=== PATIENT | female | born 1950 | race Caucasian/White ===

== ENCOUNTER 2024-09-27 12:59 | Inpatient (IN) ==
[~2024-09-27 12:59] MED LIST: DEXAMETHASONE 10 MG/ML VIAL ONE; KETAMINE 50 MG/ML Syringe IV ONE; LIDOCAINE 2% PF 5 ML VIAL ONE; MAGNESIUM SULFATE 2 GM/50 ML BAG IV ONE; ONDANSETRON 4 MG/2 ML VIAL ONE; PROPOFOL 200 MG/20 ML VIAL IV ONE; fentaNYL 100 MCG/2 ML VIAL ONE
[2024-09-27 13:29] LABS: POC Calcium, Ionized 1.17 (1.16-1.32); POC Creatinine 0.6 (0.6-1.2); POC Potassium 2.9 (3.3-5.1)
[2024-09-27 13:48] LABS: Basophils # (Auto) 0.03 K/mcL (0.00-0.30); Basophils % (Auto) 0.5 % (0.0-2.0); Eosinophils # (Auto) 0.01 K/mcL (0.00-0.70); Eosinophils % (Auto) 0.2 % (0.0-7.0); Hematocrit 39.5 % (34.1-44.9); Hemoglobin 13.6 g/dL (11.2-15.7); Lymphocytes # (Auto) 1.38 K/mcL (1.50-4.80); Lymphocytes % (Auto) 22.6 % (15.5-49.0); Mean Cell Volume 89.6 fL (80.0-100.0); Mean Corpuscular HGB Conc 34.4 g/dL (31.0-36.0); Mean Platelet Volume 8.8 fL (8.8-12.5); Monocytes # (Auto) 0.54 K/mcL (0.10-0.90); Monocytes % (Auto) 8.9 % (1.0-12.0); Neutrophils % (Auto) 67.1 % (38.0-78.0); Platelet Count 254 K/mcL (140-440); RBC 4.41 M/mcL (3.59-5.38); Red Cell Distribution Width 13.4 % (11.5-14.5); WBC 6.1 K/mcL (4.5-11.0)
[2024-09-27] MEDS: POTASSIUM CHLORIDE 10 MEQ/100 ML BAG IV SCH (13:57)
[2024-09-27 14:05] LABS: ALT/SGPT 21 U/L (<40); AST/SGOT 18 U/L (<32); Albumin 4.5 gm/dL (3.2-5.2); Albumin/Globulin Ratio 1.7 (1.0-2.3); Alkaline Phosphatase 44 U/L (39-117); Bilirubin,Total 1.3 mg/dL (0.1-1.0); Blood Urea Nitrogen 14 mg/dL (8-23); Calcium 9.5 mg/dL (8.6-10.4); Carbon Dioxide 25 mmol/L (22-30); Chloride 94 mmol/L (96-108); Globulin 2.7 gm/dL (2.2-3.7); Glomerular Filtration Rate 95; Glucose 106 mg/dL (70-105); Potassium 2.9 mmol/L (3.3-5.1); Sodium 134 mmol/L (133-145)
[2024-09-27] MEDS: ceFAZolin 2 GM in DEXTROSE 5% IN WATER 50 ML IV SCH (15:32)
[2024-09-27] MEDS ORDERED: TRANEXAMIC ACID 1,000 MG/10 ML VIAL ONE (16:14)
[2024-09-27] MEDS ORDERED: PHENYLephrine 1 MG/10 ML SYRINGE (ANEST) ONE (16:14)
[2024-09-27] MEDS: THROMBIN (BOVINE) 5,000 UNIT VIAL TOPICAL ONE (16:33)
[2024-09-27] MEDS ORDERED: ePHEDrine 50 MG/ML AMPUL IV ONE (17:01)
[2024-09-27] MEDS ORDERED: IPRATROPIUM/ALBUTEROL 3 ML AMPUL.NEB NEB PRN ×2 (17:09→20:06)
[2024-09-27] MEDS ORDERED: NALOXONE HCL 0.4 MG/ML VIAL IV PRN (17:09)
[2024-09-27] MEDS ORDERED: METHOCARBAMOL 1,000 MG/10 ML VIAL IV PRN (17:09)
[2024-09-27] MEDS ORDERED: LACTATED RINGERS 250 ML IV PRN (17:09)
[2024-09-27] MEDS ORDERED: fentaNYL 100 MCG/2 ML VIAL IV PRN (17:09)
[2024-09-27] MEDS ORDERED: MEPERIDINE 25 MG/ML VIAL IV PRN (17:09)
[2024-09-27] MEDS ORDERED: ONDANSETRON 4 MG/2 ML VIAL IV PRN ×2 (17:09→17:21)
[2024-09-27] MEDS ORDERED: PROMETHAZINE 25 MG/ML VIAL IV PRN (17:21)
[2024-09-27] MEDS ORDERED: METHOCARBAMOL 750 MG TABLET PO PRN (17:21)
[2024-09-27] MEDS ORDERED: ONDANSETRON 4 MG ODT TABLET SL PRN (17:21)
[2024-09-27] MEDS ORDERED: BENZOCAINE/MENTHOL 1 LOZENGE PO PRN (17:21)
[2024-09-27] MEDS ORDERED: ESMOLOL 100 MG/10 ML VIAL IV ONE (17:33)
[2024-09-27] MEDS ORDERED: NALOXONE HCL 0.4 MG/ML VIAL ONE (17:41)
[2024-09-27] MEDS ORDERED: LABETALOL HCL 20 MG/4 ML VIAL IV ONE (17:51)
[2024-09-27] MEDS ORDERED: IOPAMIDOL 100 ML BOTTLE IV ONE (18:26)
[2024-09-27] MEDS: LABETALOL HCL 20 MG/4 ML VIAL IV ONE ×3 (18:40→18:45)
[2024-09-27] MEDS: METOPROLOL TARTRATE 5 MG/5 ML VIAL IV ONE ×2 (19:05→19:06)
[2024-09-27] MEDS: ACETAMINOPHEN 1,000 MG/100 ML BAG IV ONE (19:22)
[2024-09-27] MEDS: LACTATED RINGERS 1,000 ML IV SCH (19:32)
[2024-09-27] MEDS ORDERED: MAGNESIUM SULFATE 2 GM/50 ML BAG IV PRN (20:06)
[2024-09-27] MEDS ORDERED: POTASSIUM CHLORIDE 20 MEQ TABLET PO PRN (20:06)
[2024-09-27] MEDS ORDERED: METOCLOPRAMIDE 10 MG/2 ML VIAL IV PRN (20:06)
[2024-09-27] MEDS ORDERED: HYDROcodone/APAP 5/325MG TABLET PO PRN (20:06)
[2024-09-27] MEDS ORDERED: LABETALOL HCL 20 MG/4 ML VIAL IV PRN (20:06)
[2024-09-27] MEDS ORDERED: SENNOSIDES 1 TABLET PO PRN (20:06)
[2024-09-27] MEDS ORDERED: METOPROLOL TARTRATE 5 MG/5 ML VIAL IV PRN (20:06)
[2024-09-27] MEDS ORDERED: hydrALAZINE 20 MG/ML VIAL IV PRN (20:06)
[2024-09-27] MEDS ORDERED: tiZANidine 4 MG TABLET PO PRN (20:10)
[2024-09-27] MEDS ORDERED: DILTIAZEM 125 MG in DEXTROSE 5% IN WATER 100 ML IV PRN (20:15)
[2024-09-27] MEDS: BUPIVACAINE 0.25% 50 ML VIAL IJ ONE (20:23)
[2024-09-27 20:47] LABS: Thyroid Stimulating Hormone 0.01 uIU/mL (0.27-5.01)
[2024-09-27] MEDS: HYDROmorphone 2 MG TABLET PO PRN (20:48)
[2024-09-27] MEDS: 0.9 % SODIUM CHLORIDE 10 ML SYRINGE IV SCH (20:58)
[2024-09-27] MEDS: POTASSIUM CHLORIDE 40 MEQ in DEXTROSE 5% IN WATER 500 ML IV PRN (21:27)
[2024-09-27] MEDS: DOCUSATE SODIUM 100 MG CAPSULE PO SCH (21:40)
[2024-09-27] MEDS: POTASSIUM CHLORIDE 20 MEQ/10 ML VIAL IV ONE (21:40)
[2024-09-27] MEDS: METOPROLOL TARTRATE 25 MG TABLET PO SCH (21:54)
[2024-09-27] MEDS: ceFAZolin 1 GM VIAL IV SCH (22:53)
[2024-09-28] MEDS: ACETAMINOPHEN 325 MG TABLET PO PRN (01:41)
[2024-09-28 06:06] LABS: Basophils # (Auto) 0 K/mcL (0.00-0.30); Basophils % (Auto) 0 % (0.0-2.0); Eosinophils # (Auto) 0 K/mcL (0.00-0.70); Eosinophils % (Auto) 0 % (0.0-7.0); Hematocrit 35.2 % (34.1-44.9); Hemoglobin 12.2 g/dL (11.2-15.7); Lymphocytes # (Auto) 0.64 K/mcL (1.50-4.80); Lymphocytes % (Auto) 9.7 % (15.5-49.0); Mean Cell Volume 90.5 fL (80.0-100.0); Mean Corpuscular HGB Conc 34.7 g/dL (31.0-36.0); Mean Platelet Volume 8.9 fL (8.8-12.5); Monocytes # (Auto) 0.49 K/mcL (0.10-0.90); Monocytes % (Auto) 7.5 % (1.0-12.0); Neutrophils % (Auto) 82.5 % (38.0-78.0); Platelet Count 225 K/mcL (140-440); RBC 3.89 M/mcL (3.59-5.38); Red Cell Distribution Width 13.4 % (11.5-14.5); WBC 6.6 K/mcL (4.5-11.0)
[2024-09-28 06:50] LABS: Blood Urea Nitrogen 12 mg/dL (8-23); Calcium 8.2 mg/dL (8.6-10.4); Carbon Dioxide 21 mmol/L (22-30); Chloride 91 mmol/L (96-108); Glomerular Filtration Rate 102; Glucose 129 mg/dL (70-105); Potassium 3.6 mmol/L (3.3-5.1); Sodium 131 mmol/L (133-145)
[2024-09-28 06:52] LABS: ALT/SGPT 23 U/L (<40); AST/SGOT 29 U/L (<32); Albumin/Globulin Ratio 1.7 (1.0-2.3); Alkaline Phosphatase 37 U/L (39-117); Bilirubin,Direct 0.4 mg/dL (<0.3); Bilirubin,Total 0.9 mg/dL (0.1-1.0); Blood Urea Nitrogen 12 mg/dL (8-23); Calcium 8.2 mg/dL (8.6-10.4); Carbon Dioxide 22 mmol/L (22-30); Chloride 91 mmol/L (96-108); Globulin 2.4 gm/dL (2.2-3.7); Glomerular Filtration Rate 102; Glucose 129 mg/dL (70-105); Lactate Dehydrogenase 173 U/L (135-225); Phosphorous 3.1 mg/dL (2.5-4.5); Potassium 3.6 mmol/L (3.3-5.1); Sodium 130 mmol/L (133-145); Triglycerides 74 mg/dL (<150); Uric Acid 2.6 mg/dL (2.5-8.0)
[2024-09-28] MEDS: POLYETHYLENE GLYCOL 3350 17 GM PACKET PO PRN (07:26)
[2024-09-28] MEDS ORDERED: hydrALAZINE 20 MG/ML VIAL IV PRN (07:49)
[2024-09-28] MEDS ORDERED: LABETALOL HCL 20 MG/4 ML VIAL IV PRN (07:49)
[2024-09-28] MEDS: LOSARTAN 50 MG TABLET PO SCH (08:34)
[2024-09-28] MEDS: CARVEDILOL 6.25 MG TABLET PO SCH (08:34)
[2024-09-28] MEDS ORDERED: THYROID PORK 180 MG PO SCH (09:00)
[2024-09-28] MEDS: SODIUM CHLORIDE 1 GM TABLET PO SCH (10:44)
[2024-09-28] MEDS: MELATONIN 3 MG TABLET PO SCH (20:11)
[2024-09-28] MEDS ORDERED: diphenhydrAMINE 25 MG CAPSULE PO PRN (21:00)
[2024-09-29 06:22] LABS: ALT/SGPT 22 U/L (<40); AST/SGOT 33 U/L (<32); Albumin 3.7 gm/dL (3.2-5.2); Albumin/Globulin Ratio 1.7 (1.0-2.3); Alkaline Phosphatase 35 U/L (39-117); Bilirubin,Direct 0.5 mg/dL (<0.3); Bilirubin,Total 1.2 mg/dL (0.1-1.0); Blood Urea Nitrogen 12 mg/dL (8-23); Calcium 8.5 mg/dL (8.6-10.4); Carbon Dioxide 26 mmol/L (22-30); Chloride 95 mmol/L (96-108); Globulin 2.2 gm/dL (2.2-3.7); Glomerular Filtration Rate 102; Glucose 92 mg/dL (70-105); Lactate Dehydrogenase 168 U/L (135-225); Potassium 3.4 mmol/L (3.3-5.1); Sodium 132 mmol/L (133-145); Triglycerides 72 mg/dL (<150)
[2024-09-29] MEDS: EZETIMIBE 10 MG TABLET PO SCH (09:29)
[2024-09-29] MEDS: POTASSIUM CHLORIDE 20 MEQ TABLET PO PRN (09:29)
[2024-09-29] MEDS: HEPARIN 5,000 UNIT/ML VIAL SQ ONE (09:37)
[2024-09-29 10:12] VITALS: TEMP 97.6
[2024-09-29 11:34] VITALS: O2SAT 98
== END 2024-09-29 11:00 | disposition home or self-care (01) | DRG 515 ==
LOC: SUR 12:59 → ICU 18:25
PROVIDERS: ADMIT Orthopaedic Surgery Orthopaedic Surgery of the Spine; ATTEND Orthopaedic Surgery Orthopaedic Surgery of the Spine
PROC: [UNRECOGNIZED PROCEDURE] (2024-09-27 15:48)